=== PATIENT | male | born 1980 ===

== ENCOUNTER 2025-07-23 06:08 | Outpatient (CLI) | payer OTHER, SELFPAY | END 2025-07-23 06:09 | disposition home or self-care (01) | PROVIDERS: Family Provider Internal Medicine; PCP Nurse Practitioner Family; Visit Provider Nurse Practitioner Family | DX: I34.0 Nonrheumatic mitral (valve) insufficiency (principal); I10 Essential (primary) hypertension; E78.00 Pure hypercholesterolemia, unspecified | CPT/HCPCS: 93306 ==